=== PATIENT | male | born 1970 | race Caucasian/White ===

== ENCOUNTER → 2023-11-10 06:19 | Day surgery (SDC) | payer OTHER, SELFPAY | LOC: GI 06:19 | PROVIDERS: ATTENDING PHYSICIAN Internal Medicine Gastroenterology | DX: Z12.11 Encounter for screening for malignant neoplasm of colon (principal); K57.30 Diverticulosis of large intestine without perforation or abscess without bleeding; K63.5 Polyp of colon; Z86.010 Personal history of colon polyps; K64.8 Other hemorrhoids | CPT/HCPCS: 45385; 88305; 88341; 88342 ==